=== PATIENT | female | born 1995 | race Caucasian/White ===

== ENCOUNTER → 2019-12-11 | Outpatient (CLI) | payer OTHER ==
[2019-12-13 21:06] LABS: CHLAMYDIA TRACHOMATIS, NAA Negative (Negative); NEISSERIA GONORRHOEAE, NAA Negative (Negative)
== END ==
LOC: LAB SHORT 11:14 → LAB UCHC 11:14
PROVIDERS: Registered Nurse Community Health
DX: Z36.89 Encounter for other specified antenatal screening (principal)
CPT/HCPCS: G0123

== ENCOUNTER → 2020-04-03 | Outpatient (CLI) | payer OTHER ==
[2020-04-03 19:46] LABS: Hematocrit 33.9 % (33.0-51.0); Hemoglobin 11.1 g/dL (11.5-16.0)
== END ==
LOC: LAB SHORT 18:45 → LAB 18:45 → LAB FUT 12-11 14:00
PROVIDERS: Registered Nurse Community Health
DX: Z34.92 Encounter for supervision of normal pregnancy, unspecified, second trimester (principal)
CPT/HCPCS: 82950; 85014; 85018

== ENCOUNTER 2020-07-09 05:55 | Inpatient (IN) | payer OTHER ==
[~2020-07-09] VITALS: Ht 170.2 cm; Wt 85.0 kg
[2020-07-09 06:34] LABS: BASOPHILS ABSOLUTE AUTO 0.03 K/mm3 (0.00-0.23); BASOPHILS PERCENT AUTO 0 % (0-2); EOSINOPHILS PERCENT AUTO 1 % (0-6); Hematocrit 32.5 % (33.0-51.0); Hemoglobin 10.3 g/dL (11.5-16.0); IMMATURE GRAN ABSOLUTE AUTO 0.05 K/mm3 (0.00-0.10); IMMATURE GRAN PERCENT AUTO 1 % (0-1); LYMPHOCYTES ABSOLUTE AUTO 2.02 K/mm3 (0.84-5.20); LYMPHOCYTES PERCENT AUTO 24 % (21-46); MONOCYTES ABSOLUTE AUTO 0.72 K/mm3 (0.16-1.47); MONOCYTES PERCENT AUTO 8 % (4-13); Mean Corpuscular HGB 25.9 pg (26.0-34.0); Mean Corpuscular HGB Conc 31.7 g/dL (31.5-36.5); Mean Corpuscular Volume 82 fL (80-100); NEUTROPHILS ABSOLUTE AUTO 5.64 K/mm3 (1.96-9.15); NEUTROPHILS PERCENT AUTO 66 % (41-73); Platelet Count 145 K/mm3 (150-400); RDW Standard Deviation 41.2 fL (35.1-46.3); Red Blood Cell Count 3.98 M/mm3 (3.80-5.20); White Blood Cell Count 8.56 K/mm3 (4.00-11.30)
[2020-07-09] MEDS ORDERED: PRENATAL TABLE1 EAC2 (09:56)
[2020-07-10 06:17] LABS: BASOPHILS ABSOLUTE AUTO 0.04 K/mm3 (0.00-0.23); BASOPHILS PERCENT AUTO 0 % (0-2); EOSINOPHILS PERCENT AUTO 1 % (0-6); Hematocrit 30.7 % (33.0-51.0); Hemoglobin 9.5 g/dL (11.5-16.0); IMMATURE GRAN ABSOLUTE AUTO 0.05 K/mm3 (0.00-0.10); IMMATURE GRAN PERCENT AUTO 0 % (0-1); LYMPHOCYTES ABSOLUTE AUTO 1.71 K/mm3 (0.84-5.20); LYMPHOCYTES PERCENT AUTO 15 % (21-46); MONOCYTES ABSOLUTE AUTO 0.99 K/mm3 (0.16-1.47); MONOCYTES PERCENT AUTO 9 % (4-13); Mean Corpuscular HGB 25.6 pg (26.0-34.0); Mean Corpuscular HGB Conc 30.9 g/dL (31.5-36.5); Mean Corpuscular Volume 83 fL (80-100); NEUTROPHILS ABSOLUTE AUTO 8.38 K/mm3 (1.96-9.15); NEUTROPHILS PERCENT AUTO 74 % (41-73); Platelet Count 119 K/mm3 (150-400); RDW Coefficient Variation 14.2 % (11.7-14.2); Red Blood Cell Count 3.71 M/mm3 (3.80-5.20); White Blood Cell Count 11.27 K/mm3 (4.00-11.30)
[2020-07-10] MEDS ORDERED: DOCU100 PO (16:25)
[2020-07-10] MEDS ORDERED: IBUP800 PO (16:25)
--- NOTE | 2020-07-10 16:42 | NUR ---
DISCHARGE INSTRUCTIONS, WRITTEN AND VERBAL GIVEN TO PATIENT. ANSWERED ALL QUESTIONS AND CONCERNS. IV DISCONTINUED. ALL PERSONAL BELONGINGS RETURNED. FOLLOW UP APPOINTMENT SCHEDULED. PT IS DISCHARGED HOME, TO BE DRIVEN BY Rocio ATKINSON.
== END 2020-07-10 17:00 | disposition home or self-care (01) | DRG 807 ==
LOC: OBS 05:55 → BC 05:56 → OBS 06:04 → BC 06:07
PROVIDERS: ADMIT Registered Nurse Community Health
PROC: 10E0XZZ Delivery of Products of Conception, External Approach (ICD-10-PCS; principal; 2020-07-09)
DX: O48.0 Post-term pregnancy (principal); Z37.0 Single live birth; Z3A.40 40 weeks gestation of pregnancy; O69.81X0 Labor and delivery complicated by cord around neck, without compression, not applicable or unspecified
CPT/HCPCS: 36415; 85025; 86850; 86900; 86901; J1885; J2210; J2590; J3010; J7120

== ENCOUNTER → 2023-12-02 | Outpatient (CLI) | payer OTHER ==
[~2023-12-02] MED LIST: DOCU100 PO; IBUP800 PO; PRENATAL TABLE1 EAC2
[2023-12-02 17:20] LABS: Source, Urine Clean Catch
[2023-12-02 18:20] LABS: Appearance, Urine Hazy (Clear); Bilirubin, Urine Neg (Neg); Blood, Urine Neg (Neg); Color, Urine Yellow (P-Yellow); Glucose Qualitative, Urine Neg (Neg); Ketones, Urine Neg (Neg); Leukocyte Esterase, Urine Neg (Neg); Nitrite, Urine Neg (Neg); Protein, Urine Neg (Neg); Specific Gravity, Urine 1.015 (1.003-1.022); Urobilinogen, Urine NORM (Normal)
[2023-12-02 18:31] LABS: Amorphous Mod (0-Heavy); Bacteria Rare /hpf; Red Blood Cells, Urine 0-2 /hpf (0-2); Squamous Epithelial Cells Few /hpf (Few); White Blood Cells, Urine 0-2 /hpf (0-5)
[2023-12-02 19:58] LABS: BASOPHILS ABSOLUTE AUTO 0.03 K/mm3 (0.00-0.23); BASOPHILS PERCENT AUTO 0 % (0-2); EOSINOPHILS ABSOLUTE AUTO 0.08 K/mm3 (0.00-0.68); EOSINOPHILS PERCENT AUTO 1 % (0-6); Hematocrit 36.5 % (33.0-51.0); Hemoglobin 12.4 g/dL (11.5-16.0); IMMATURE GRAN ABSOLUTE AUTO 0.03 K/mm3 (0.00-0.10); IMMATURE GRAN PERCENT AUTO 0 % (0-1); LYMPHOCYTES ABSOLUTE AUTO 1.48 K/mm3 (0.84-5.20); LYMPHOCYTES PERCENT AUTO 17 % (21-46); MONOCYTES ABSOLUTE AUTO 0.51 K/mm3 (0.16-1.47); MONOCYTES PERCENT AUTO 6 % (4-13); Mean Corpuscular HGB 29.8 pg (26.0-34.0); Mean Corpuscular Volume 88 fL (80-100); Mean Platelet Volume 12.2 fL (9.1-12.4); NEUTROPHILS ABSOLUTE AUTO 6.39 K/mm3 (1.96-9.15); NEUTROPHILS PERCENT AUTO 75 % (41-73); Platelet Count 204 K/mm3 (150-400); RDW Coefficient Variation 12.4 % (11.7-14.2); RDW Standard Deviation 40.3 fL (35.1-46.3); Red Blood Cell Count 4.16 M/mm3 (3.80-5.20); White Blood Cell Count 8.52 K/mm3 (4.00-11.30)
[2023-12-05 08:09] LABS: HEPATITIS B SURFACE ANTIGEN Negative (Negative)
[2023-12-05 08:27] LABS: HIV 1,2 COMBO ANTIGEN/ANTIBODY Negative (Negative)
[2023-12-05 12:40] LABS: HEPATITIS C AB CIA INTERP Negative (Negative); HEPATITIS C ANTIBODY CIA INDEX 0.09 IV
== END | disposition home or self-care (01) ==
LOC: LAB 17:17 → LAB SHORT 17:17
PROVIDERS: Registered Nurse Community Health
DX: Z34.91 Encounter for supervision of normal pregnancy, unspecified, first trimester (principal)
CPT/HCPCS: 81001; 84443; 86803; 87086; 87340; 87389

== ENCOUNTER → 2023-12-15 | Outpatient (CLI) | payer OTHER ==
[2023-12-21 08:59] LABS: APTIMA MEDIA TYPE Urine; C. TRACHOMATIS BY TMA Negative (Negative); N. GONORRHOEAE BY TMA Negative (Negative); SPECIMEN SOURCE Urine
== END ==
LOC: LAB EV 12:30 → LAB SHORT 12:30
PROVIDERS: Registered Nurse Community Health
DX: Z34.91 Encounter for supervision of normal pregnancy, unspecified, first trimester (principal)
CPT/HCPCS: 87491; 87591

== ENCOUNTER → 2024-06-04 | Outpatient (CLI) | payer OTHER | END | disposition home or self-care (01) | LOC: LAB SHORT 13:08 → LAB 13:08 | DX: Z34.93 Encounter for supervision of normal pregnancy, unspecified, third trimester (principal) | CPT/HCPCS: 87081; 87150 ==

== ENCOUNTER 2024-07-17 07:05 | Inpatient (IN) | payer OTHER ==
[~2024-07-17] VITALS: Ht 170.2 cm; Wt 84.5 kg
[2024-07-17] VITALS (13 sets, daily range): BP systolic 109–126; BP diastolic 58–79
[2024-07-17] MEDS ORDERED: Acetaminophen 500 MG Tab PO PRN (07:25)
[2024-07-17] MEDS ORDERED: Ondansetron HCl 2 MG / ML 2ML Vial IV PRN (07:25)
[2024-07-17] MEDS ORDERED: ePHEDrine Sulfate 50 MG/ML 1ML Injection XX PRN (07:25)
[2024-07-17] MEDS ORDERED: Oxytocin 10 Unit / ML Vial IM PRN (07:25)
[2024-07-17] MEDS ORDERED: OXYTOCIN/RINGER'S LACTATE 500 ML IV PRN (07:25)
[2024-07-17] MEDS ORDERED: Lactated Ringer's 1,000 ML IV PRN (07:25)
[2024-07-17] MEDS ORDERED: Misoprostol 200 MCG Tab BC PRN (07:25)
[2024-07-17] MEDS ORDERED: Carboprost Tromethamine 250 MCG/ML 1ML Amp IM PRN (07:25)
[2024-07-17] MEDS ORDERED: Methylergonovine Maleate 0.2MG / ML 1ML Amp IM PRN (07:25)
[2024-07-17] MEDS ORDERED: FentaNYL Citrate 50 MCG/ML 2 ML Injection IV PRN (07:25)
[2024-07-17] MEDS ORDERED: Misoprostol 200 MCG Tab PR PRN (07:25)
[2024-07-17] MEDS ORDERED: Lactated Ringer's 1,000 ML IV SCH ×4 (07:25→17:55)
[2024-07-17] MEDS ORDERED: FentaNYL 2mcg/ml-Bup 0.1% Epd 250 ML EPI PRN (07:25)
[2024-07-17] MEDS ORDERED: OXYTOCIN/RINGER'S LACTATE 500 ML IV SCH (07:25)
[2024-07-17] MEDS ORDERED: Calcium Carbonate 500 MG Tab Chew PO SCH (07:25)
[2024-07-17] MEDS ORDERED: Methylergonovine Maleate 0.2MG / ML 1ML Amp ONE (07:27)
[2024-07-17] MEDS ORDERED: OXYTOCIN/RINGER'S LACTATE 500 ML IV ONE (07:27)
[2024-07-17] MEDS ORDERED: Lactated Ringer's 1,000 ML IV ONE (07:27)
[2024-07-17] MEDS ORDERED: Tranexamic Acid 100 ML IV SCH (07:30)
[2024-07-17] MEDS ORDERED: Calcium Carbonate 500 MG Tab Chew PO PRN (08:00)
[2024-07-17 08:08] LABS: BASOPHILS ABSOLUTE AUTO 0.02 K/mm3 (0.00-0.23); BASOPHILS PERCENT AUTO 0 % (0-2); EOSINOPHILS ABSOLUTE AUTO 0.05 K/mm3 (0.00-0.68); EOSINOPHILS PERCENT AUTO 1 % (0-6); Hematocrit 32.4 % (33.0-51.0); Hemoglobin 10.6 g/dL (11.5-16.0); IMMATURE GRAN ABSOLUTE AUTO 0.05 K/mm3 (0.00-0.10); IMMATURE GRAN PERCENT AUTO 1 % (0-1); LYMPHOCYTES ABSOLUTE AUTO 1.17 K/mm3 (0.84-5.20); LYMPHOCYTES PERCENT AUTO 17 % (21-46); MONOCYTES PERCENT AUTO 8 % (4-13); Mean Corpuscular HGB 26.8 pg (26.0-34.0); Mean Corpuscular HGB Conc 32.7 g/dL (31.5-36.5); Mean Corpuscular Volume 82 fL (80-100); Mean Platelet Volume 12.2 fL (9.1-12.4); NEUTROPHILS ABSOLUTE AUTO 4.92 K/mm3 (1.96-9.15); NEUTROPHILS PERCENT AUTO 73 % (41-73); Platelet Count 140 K/mm3 (150-400); RDW Coefficient Variation 14.1 % (11.7-14.2); RDW Standard Deviation 41.7 fL (35.1-46.3); Red Blood Cell Count 3.96 M/mm3 (3.80-5.20); White Blood Cell Count 6.71 K/mm3 (4.00-11.30)
[2024-07-17] MEDS ORDERED: Misoprostol 200 MCG Tab PO ONE (08:46)
[2024-07-17] MEDS ORDERED: Lanolin Cream TOP PRN (17:55)
[2024-07-17] MEDS ORDERED: OxyCODONE 5 mg/Acetamin 325 mg TABLET PO PRN (17:55)
[2024-07-17] MEDS ORDERED: Benzocaine Topical Anesthetic Spray 60GM TOP PRN (17:55)
[2024-07-17] MEDS ORDERED: Witch Hazel/Glycerin PADS TOP PRN (18:00)
[2024-07-17] MEDS ORDERED: Ibuprofen 400 MG Tab PO PRN (18:00)
[2024-07-17] MEDS ORDERED: Ketorolac Tromethamine 30mg Vial IV PRN (18:00)
[2024-07-17] MEDS ORDERED: CeFAZolin Sodium 2,000 MG in NS 100 ML IV SCH (18:35)
--- NOTE | 2024-07-17 20:32 | NUR ---
REPORT RECEIVED FROM VALERIA MATT. PT CURRENTLY UP IN BATHROOM, DENIES NEEDS AT THIS TIME.
--- NOTE | 2024-07-17 21:03 | NUR ---
Pt in room awake and holding baby.
--- NOTE | 2024-07-17 21:55 | NUR ---
CAKLL LIGHT ANSWERED, FRESH ICE WATER PROVIDED, PRN TYLENOL ADMINSITERED PER REQUEST. PT CURRENTLY . DISCUSSED CONTINUING PO METHERGINE TONIGHT, PT AGREEABLE. DENIES FURTHER NEEDS AT THIS TIME.
[2024-07-17] MEDS ORDERED: Methylergonovine Maleate 0.2 MG Tab PO SCH (23:00)
--- NOTE | 2024-07-17 23:32 | NUR ---
PT REPORTS THAT SHE FILLED A PAD AND EXPRESSES CONCERN OVER AMOUNT OF BLEEDING. PAD IS ~3/4 FULL. FUNDUS IS FIRM, U-1, NO TRICKLE NOTED WITH FUNDAL CHECK. WILL RECHECK BLEEDING IN AN HOUR, PT AGREEABLE. SCHEDULED METHERGINE GIVEN.
--- NOTE | 2024-07-18 00:29 | NUR ---
REASSESSED BLEEDING, LOCH[place] AMOUNT REMAINS SMALL TO MODERATE. PT DENIES FURTHER REQUESTS AT THIS TIME. CALL LIGHT AND BELONGINGS WITHIN REACH.
--- NOTE | 2024-07-18 02:23 | NUR ---
PT UP TO BATHROOM WHEN RN ROUNDED AT THIS TIME. LOCHIA AMOUNT REMAINS SMALL TO MODERATE ON PAD. PT DENIES NEED FOR PAIN MEDICATION. ICE WATER PROVIDED PER REQUEST. PT NOW GETTING READY TO BREASTFEED.
--- NOTE | 2024-07-18 03:06 | NUR ---
IN TO START SCHEDULED ANCEF INFUSION. PT REQUESTS PAIN MEDICATION, PRN TORADOL GIVEN. NB AT BREAST, PT DENIES FURTHER REQUESTS.
[2024-07-18 03:30] VITALS: BP 115/56
--- NOTE | 2024-07-18 03:40 | NUR ---
ANCEF INFUSION COMPLETED. IV SALINE LOCKED. VSS. PT REPORTS PAIN IS RESOLVED AND DENIES FURTHER REQUESTS/COMPLAINTS. CALL LIGHT AND BELONGINGS WITHIN REACH.
--- NOTE | 2024-07-18 05:35 | NUR ---
IN TO GIVE SCHEDULED METHERGINE. PT RESTING, DENIES FURTHER NEEDS AT THIS TIME. NB RESTING IN [place] AT BEDSIDE.
[2024-07-18 06:00] LABS: Hemoglobin 9.4 g/dL (11.5-16.0); Mean Corpuscular HGB 26.3 pg (26.0-34.0); Mean Corpuscular HGB Conc 31.3 g/dL (31.5-36.5); Mean Corpuscular Volume 84 fL (80-100); Mean Platelet Volume 12.5 fL (9.1-12.4); Platelet Count 115 K/mm3 (150-400); RDW Coefficient Variation 14.2 % (11.7-14.2); RDW Standard Deviation 43.6 fL (35.1-46.3); Red Blood Cell Count 3.57 M/mm3 (3.80-5.20)
[2024-07-18 07:31] VITALS: BP 105/59
[2024-07-18] MEDS ORDERED: Prenatal Vit/FE Fumarate/FA 1 Tab PO SCH (09:00)
[2024-07-18 11:59] VITALS: BP 116/58
[2024-07-18 16:30] VITALS: BP 113/60
[2024-07-18 18:01] VITALS: BP 113/62
--- NOTE | 2024-07-18 18:03 | NUR ---
PT DISCHARGED HOME WITH BABY. DISCHARGE INSTRUCTIONS AND PAPERS GIVEN
== END 2024-07-18 18:10 | disposition home or self-care (01) | DRG 807 ==
LOC: OBS 07:05 → BC 07:12 → OBS 07:17 → BC 07:18
PROVIDERS: ADMIT Family Medicine
PROC: 10E0XZZ Delivery of Products of Conception, External Approach (ICD-10-PCS; principal; 2024-07-17)
PROC: 10D17Z9 Manual Extraction of Products of Conception, Retained, Via Natural or Artificial Opening (ICD-10-PCS; 2024-07-17)
DX: O48.0 Post-term pregnancy (principal); Z37.0 Single live birth; Z3A.41 41 weeks gestation of pregnancy
CPT/HCPCS: 36415; 85025; 85027; 86850; 86900; 86901; A9270; J0690; J1885; J2210; J2590; J3010; J7120

== ENCOUNTER → 2025-10-15 | Outpatient (CLI) | payer OTHER | END | disposition home or self-care (01) | LOC: LAB SHORT 15:15 → LAB 15:15 | DX: J02.9 Acute pharyngitis, unspecified (principal) | CPT/HCPCS: 87081 ==